=== PATIENT | male | born 2005 | race African-American/Black ===

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

== ENCOUNTER 2025-06-27 01:35 | Emergency (ER) | payer BC, SELFPAY ==
[2025-06-27 01:37] VITALS: BP 143/103; PULSE 68; RESP 16; TEMP 36.7; O2SAT 98; BMI 22.8
--- NOTE | 2025-06-27 03:19 | ED.ANIMALBIT ---
HPI - Animal Bite General Chief Complaint: Animal Bite Stated Complaint: Accidental - Dog Bite Cut Time Seen by Provider: 06/27/25 03:03 Source: patient Mode of arrival: ambulatory Limitations: no limitations History of Present Illness ED Provider: Dr. Dilcia Mora HPI narrative: Patient comes to the emergency room complaining of a dog bite to the forearm and multiple scratches. According to the patient, he was at a friend's house, the patient states that 2 dogs in the household started fighting and he was trying to help them to split off. Patient got accidentally bitten by 1 of the dogs. Patient states that the dog is up-to-date with his immunizations. Patient states that he does not know if he is up-to-date with his Tdap. Patient denies any other injuries done in the forearm. Related Data Previous Rx's ?Medication ?Instructions ?Recorded cyclobenzaprine 10 mg tablet 10 mg PO Q8H #14 tabs 06/13/22 naproxen 500 mg tablet 500 mg PO BID PRN pain #14 tabs 06/13/22 amoxicillin 500 mg-potassium 1 tab PO BID #10 tabs 06/27/25 clavulanate 125 mg tablet (Augmentin) ibuprofen 600 mg tablet 600 mg PO Q8H PRN fever or pain 06/27/25 #30 tabs Allergies Allergy/AdvReac Type Severity Reaction Status Date / Time No Known Allergies Allergy Verified 06/27/25 01:43 Review of Systems Review of Systems: Constitutional : No Weight loss, No Fever, No Chills, No Night Sweats, No Fatigue, No Malaise ENT/Mouth : No Hearing loss, No Ear Pain, No Nasal Congestion, No Sinus Pain, No Hoarseness, No sore throat, No Rhinorrhea, No Swallowing Difficulty Eyes: No Eye Pain, No Swelling, No Redness, No Foreign Body, No Discharge, No Vision Changes Cardiovascular : No Chest Pain, No SOB, No Dyspnea on Exertion, No Orthopnea, No Edema, No Palpitations Respiratory : No Cough, No Sputum, No Wheezing, No Smoke Exposure, No Dyspnea Gastrointestinal : No Nausea, No Vomiting, No Diarrhea, No Constipation, No abdominal Pain, No Hematochezia, No Melena Genitourinary : no irregular bleeding, No Dysuria, No Urinary Frequency, No Hematuria, No Urinary Incontinence, No Urgency, No Flank Pain, No Urinary Flow Changes, No Hesitancy Musculoskeletal : No joint pain, No Myalgias, No Joint Swelling Skin : Complaining of a dog bite to the forearm and scratches Neuro : No Weakness, No Numbness, No Paresthesias, No Loss of Consciousness, No Dizziness, No Headache Psych : No Anxiety/Panic, No Depression, No SI/HI/AH/VH, No Social Issues, Heme/Lymph: No Bruising, No Bleeding,No Lymphadenopathy Endocrine : No Polyuria, No Polydipsia, No Temperature Intolerance [facility] Social History Social History Advance Directives: No Advance Directives Information Provided: Yes Do you have a plan to hurt others: No Plan Physical Exam ED Exam Exam: Appearance: Alert. Oriented X3. No acute distress. Eyes: Pupils equal, round and reactive to light. ENT: Pharynx normal. Neck: Normal inspection. Neck supple. No lymph nodes noted. No crepitus CVS: Normal heart rate and rhythm. Pulses normal. Normal S1 and S2 Respiratory: No respiratory distress. Breath sounds normal. No Wheezing. No rales Abdomen: Soft and nontender. No rigidity. No distention. Skin: Skin warm and dry. Normal skin color. Normal skin turgor. Extremities: No lower extremity edema. No Lacerations. No Rash. On the right forearm, there is a puncture wound in the anterior aspect of the forearm, bleeding controlled, there is always noticed swelling on the lateral aspect of the forearm, by scratches. Patient able to flex and extend the elbow, no erythema at the elbow, no joint pain. Neuro: Oriented X 3. No motor deficit. No sensory deficit. Moving all extremities. No slurred speech. CN 2 through 12 grossly intact Psych: calm, cooperative, normal affect Vital Signs: Vital Signs - 24 hr 06/27/25 01:37 Temperature 98.1 F Pulse Rate 68 Respiratory Rate 16 Blood Pressure 143/103 H Pulse Oximetry 98 Oxygen Delivery Method Room Air BMI result Body Mass Index 22.8 Medical Decision Making Medical Decision Making MDM Narrative: Patient's arm was started declined, soaked in saline and Betadine solution. Patient was given Tdap and 1st dose of Augmentin. Discussed with the patient that the dog puncture wound does not need to be closed to prevent further infection As mentioned above, patient states that his friend's dogs are up-to-date with their immunizations At this time, rabies immunoglobulin and vaccine are not indicated Discharge Plan Discharge Clinical Impression: Dog bite Patient Disposition: Home, Self-Care Instructions: Animal Bite (ED) Additional Instructions: Please follow-up with your primary care physician tomorrow. If you have any worsening or new symptoms, please return to the emergency room or call 911 Prescriptions: New amoxicillin-pot clavulanate [Augmentin] 500-125 mg tablet 1 tab PO BID Qty: 10 0RF ibuprofen 600 mg tablet 600 mg PO Q8H PRN (Reason: fever or pain) Qty: 30 0RF No Action naproxen 500 mg tablet 500 mg PO BID PRN (Reason: pain) Qty: 14 0RF cyclobenzaprine 10 mg tablet 10 mg PO Q8H Qty: 14 0RF Stand Alone Forms: Work/School Release Print Language: Yakut
[2025-06-27] MEDS: Diphth,Pertus(ACell),Tet Adult 0.5 ML SYRINGE IM (04:07)
[2025-06-27 04:25] VITALS: BP 143/103; PULSE 68; RESP 16; TEMP 36.7; O2SAT 98
== END 2025-06-27 04:26 | disposition home or self-care (01) ==
PROVIDERS: Emergency Provider Emergency Medicine
DX: S51.851A Open bite of right forearm, initial encounter (principal); W54.0XXA Bitten by dog, initial encounter; Y93.9 Activity, unspecified; Y92.9 Unspecified place or not applicable; Y99.8 Other external cause status; Z23 Encounter for immunization
CPT/HCPCS: 90471; 90715; 99282; 99284